=== PATIENT | female | born 1955 | race Caucasian/White ===

== ENCOUNTER 2018-03-06 08:59 | Observation (INO) | payer SELFPAY ==
[2018-03-06 09:49] LABS: BASO % 0.6 % (0.0-2.0); EOS # 0.1 K/uL (0.0-0.7); EOS % 2.7 % (0.0-4.0); HEMOGLOBIN 10.7 g/dL (11.0-16.0); LYMPH # 1.6 K/uL (1.0-4.3); LYMPH % 52.7 % (20.0-40.0); MEAN CELL VOLUME 61.3 fL (81.0-99.0); MEAN CORPUSCULAR HEMOGLOBIN 19.5 pg (27.0-31.0); MEAN CORPUSCULAR HGB CONC 31.9 g/dL (33.0-37.0); MEAN PLATELET VOLUME 8.7 fL (7.2-11.7); MONO # 0.3 K/uL (0.0-0.8); MONO % 8.5 % (0.0-10.0); NEUT # 1.1 K/uL (1.8-7.0); NEUT % 35.5 % (50.0-75.0); NRBC % 0.1 % (0.0-2.0); RBC 5.49 Mil/uL (3.80-5.20); RED CELL DISTRIBUTION WIDTH 15.8 % (11.5-14.5); WHITE BLOOD COUNT 3.1 K/uL (4.8-10.8)
--- NOTE | 2018-03-06 09:51 | C.PDOC ---
History Of Present Illness Patient presents to ED c/o intermittent left sided squeezing chest pain since this morning, worse with exertion/going up stairs. Patient has PMHx of HTN, MVP , CAD. She denies cough, fever, palpitations. She does admit to occasional SOB with exertion. Patient visiting from [place], has been here 5 months, no PMD here. Time Seen by Provider: 03/06/18 09:02 Chief Complaint (Nursing): Chest Pain History Per: Patient History/Exam Limitations: no limitations Current Symptoms Are (Timing): Still Present Severity: Moderate Quality: "Pain" Exacerbating Factors: Exertion Past Medical History Reviewed: Historical Data, Nursing Documentation, Vital Signs Vital Signs: Last Vital Signs Temp 97.9 F 03/07/18 15:00 Pulse 61 03/07/18 15:00 Resp 18 03/07/18 15:00 BP 113/76 03/07/18 15:00 Pulse Ox 98 03/07/18 15:54 - Medical History PMH: CAD, HTN, Mitral Valve Prolapse Surgical History: Appendectomy Other Surgeries: tubal ligation Family History: States: No Known Family Hx - Social History Hx Alcohol Use: No Hx Substance Use: No Review Of Systems Cardiovascular: Positive for: Chest Pain. Negative for: Palpitations Respiratory: Positive for: Shortness of Breath, SOB with Excertion. Negative for: Cough Gastrointestinal: Negative for: Nausea, Vomiting, Abdominal Pain, Diarrhea Physical Exam - Physical Exam Appears: Well, Non-toxic, No Acute Distress, Other (speaking in full sentences) Oral Mucosa: Moist Cardiovascular: Rhythm Regular, No Murmur Respiratory: Normal Breath Sounds, No Rales, No Rhonchi, No Wheezing Gastrointestinal/Abdominal: Normal Exam, Bowel Sounds, Soft, No Tenderness Extremity: Normal ROM, No Pedal Edema, No Calf Tenderness Pulses: Left Dorsalis Pedis: Normal, Right Dorsalis Pedis: Normal Neurological/Psych: Oriented x3 ED Course And Treatment - Laboratory Results Result Diagrams: 03/07/18 07:00 03/06/18 09:42 ECG: Interpreted By Me, Viewed By Me (NSR 66bpm, normal axis, ST depressions II , III, aVF, V4-V6) ECG Interpretation: Abnormal O2 Sat by Pulse Oximetry: 98 (RA) Pulse Ox Interpretation: Normal - Other Rad CXR X-Ray: Viewed By Me, Read By Radiologist Interpretation: Clear. PLEURA: No pneumothorax or pleural fluid seen. CARDIOVASCULAR: Cardiomediastinal silhouette deforms normal in size. OSSEOUS STRUCTURES: Degenerative changes. VISUALIZED UPPER ABDOMEN: Normal. OTHER FINDINGS: None. IMPRESSION: No active disease. Progress Note: Blood work, CXR, EKG ordered and reviewed. Reevaluation Time: 11:00 Reassessment Condition: Improved (Patient resting comfortably, chest pain has improved but she is c/o headache. PO tylenol ordered.) - Physician Consult Information Physician Contacted: Patsy Olson Outcome Of Conversation: Discussed patient with hospitalist, agrees with admission for chest pain, abnornal EKG, r/o ACS. Disposition - Disposition Disposition: HOSPITALIZED Disposition Time: 11:02 Condition: STABLE - Clinical Impression Clinical Impression: Abnormal EKG, Chest pain Decision To Admit - Pt Status Changed To: Hospital Disposition Of: Observation - . Bed Request Type: Telemetry Admitting Physician: Patsy Olson Patient Diagnosis: Chest pain, Abnormal EKG
[2018-03-06 09:59] LABS: ALB/GLOB RATIO 1.4 (1.0-2.1); ALBUMIN 4.2 g/dL (3.5-5.0); ALT/SGPT 31 U/L (9-52); AST/SGOT 25 U/L (14-36); BLOOD UREA NITROGEN 11 mg/dL (7-17); CALCIUM 9.2 mg/dl (8.6-10.4); GFR AFRICAN-AMERICAN > 60; GFR NON-AFRICAN AMERICAN > 60
[2018-03-06 10:01] LABS: INR 1.1; PROTHROMBIN TIME 11.5 SECONDS (9.7-12.2)
[2018-03-06 10:12] LABS: B-TYPE NATRIURETIC PEPTIDE 147 pg/mL (0-900)
--- NOTE | 2018-03-06 10:18 | RAD ---
PROCEDURE: CHEST RADIOGRAPH, 1 VIEW HISTORY: cp COMPARISON: None available. FINDINGS: LUNGS: Clear. PLEURA: No pneumothorax or pleural fluid seen. CARDIOVASCULAR: Cardiomediastinal silhouette deforms normal in size. OSSEOUS STRUCTURES: Degenerative changes. VISUALIZED UPPER ABDOMEN: Normal. OTHER FINDINGS: None. IMPRESSION: No active disease.
[2018-03-06 10:22] LABS: CK-MB < 0.22 ng/mL (0.0-3.38)
--- NOTE | 2018-03-06 12:32 | CP.PCM.HP ---
History of Present Illness - History of Present Illness History of Present Illness: Ms. Tate is a 62yo female with a PMH CAD, angina, HTN, HLD, MVP, anemia presenting with sudden chest pain that awoke her from sleep at 3AM. She is visiting from [place] for the last 5 months and had planned on returning back at the end of the 6th month here in the [place]. The CP comes and goes and lasts for about 3 min at a time with palpitations, numbness and tingling down both arms, more pronounced on the left, dizziness, and shortness of breath. It originates midsternum and radiates to her back, worse when she leans forward. She also complains of swelling in her legs that has been going on for the last year. Denies fever, chills, night sweats, changes in weight or appetite. Denies sore throat, recent travel, nausea, vomiting, constipation, diarrhea. Present on Admission - Present on Admission Any Indicators Present on Admission: No Review of Systems - Constitutional Constitutional: absent: Fever, Headache, Night Sweats, Weight Gain, Weight Loss , Weakness - EENT Eyes: absent: Change in Vision Ears: Tinnitus Nose/Mouth/Throat: absent: Dry Mouth, Dysphagia, Sore Throat - Cardiovascular Cardiovascular: Chest Pain, Chest Pain at Rest, Dyspnea, Leg Edema, Lightheadedness, Palpitations, Radiating Pain. absent: Diaphoresis, Dyspnea on Exertion, Leg Ulcers, Syncope - Respiratory Respiratory: Dyspnea. absent: Cough, Wheezing, Pain on Inspiration, Chest Congestion - Gastrointestinal Gastrointestinal: absent: Abdominal Pain, Change in Bowel Habits, Constipation, Diarrhea, Hematemesis, Hematochezia - Genitourinary Genitourinary: absent: Change in Urinary Stream, Difficulty Urinating, Urinary Incontinence, Urinary Urgency, Bladder Distension - Reproductive: Female Reproductive:Female: Post Menopausal - Menstruation Menstruation: Post Menopausal - Musculoskeletal Musculoskeletal: Numbness. absent: Muscle Weakness Additional comments: numbess radiating down arm most pronounced at fingertips of both hands - Integumentary Integumentary: Dry Skin. absent: Erythema, Rash Additional comments: warm, dry, intact - Neurological Neurological: Dizziness, Numbness, Tingling. absent: Abnormal Gait, Focal Weakness, Frequent Falls, Headaches, Loss of Vision, Memory Loss, Paresthesias, Radicular Pain, Syncope, Tremor - Psychiatric Psychiatric: absent: Behavioral Changes, Confusion, Depression - Endocrine Endocrine: absent: Cold Intolorance, Flushing, Heat Intolorance - Hematologic/Lymphatic Additional comments: non pitting edema in bilateral ankles. 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[place]) Hx Angina: Yes Hx Atrial Fibrillation: No Hx Congestive Heart Failure: No Hx Heart Attack: No Hx Hypercholesterolemia: Yes Hx Hypertension: Yes Hx Mitral Valve Prolapse: Yes - PSYCHIATRIC Hx Substance Use: No - SURGICAL HISTORY Hx Appendectomy: Yes Meds Allergies/Adverse Reactions: Allergies Allergy/AdvReac Type Severity Reaction Status Date / Time No Known Allergies Allergy Verified 03/06/18 09:28 Physical Exam - Constitutional Appears: Non-toxic, No Acute Distress - Head Exam Head Exam: ATRAUMATIC, NORMOCEPHALIC - Eye Exam Eye Exam: EOMI, Normal appearance, PERRL - ENT Exam ENT Exam: Mucous Membranes Moist, Normal Exam - Neck Exam Neck exam: Positive for: Normal Inspection. Negative for: Lymphadenopathy, Tenderness Additional comments: no JVD - Respiratory Exam Respiratory Exam: Clear to Auscultation Bilateral, NORMAL BREATHING PATTERN. absent: Rales, Rhonchi, Wheezes - Cardiovascular Exam Cardiovascular Exam: REGULAR RHYTHM, RRR, +S1, +S2. absent: Clicks Additional comments: MVP click not appreciated - GI/Abdominal Exam GI & Abdominal Exam: Normal Bowel Sounds, Soft. absent: Distended, Rebound, Tenderness - Extremities Exam Extremities exam: Positive for: full ROM, pedal edema, pedal pulses present Additional comments: producible numbness and tingling in bilateral hands. bilateral ankle edema, non pitting - Back Exam Back exam: NORMAL INSPECTION. absent: rash noted - Neurological Exam Neurological exam: Alert, CN II-XII Intact, Normal Gait, Oriented x3, Reflexes Normal Additional comments: distal tingling of fingertips reproducible motor function 5+ in all 4 extremities in all movements - Psychiatric Exam Psychiatric exam: Normal Affect, Normal Mood - Skin Skin Exam: Dry, Intact, Normal Color, Warm Results - Vital Signs Recent Vital Signs: Last Vital Signs Temp 98.3 F 03/06/18 09:25 Pulse 57 L 03/06/18 10:34 Resp 16 03/06/18 10:34 BP 147/80 03/06/18 10:34 Pulse Ox 98 03/06/18 11:05 - Labs Result Diagrams: 03/06/18 09:42 03/06/18 09:42 Labs: Laboratory Results - last 24 hr 03/06/18 03/06/18 03/06/18 09:42 09:42 09:42 WBC 3.1 L RBC 5.49 H Hgb 10.7 L Hct 33.7 L MCV 61.3 L MCH 19.5 L MCHC 31.9 L RDW 15.8 H Plt Count 184 MPV 8.7 Neut % (Auto) 35.5 L Lymph % (Auto) 52.7 H [place] % (Auto) 8.5 Eos % (Auto) 2.7 Baso % (Auto) 0.6 Neut # (Auto) 1.1 L Lymph # (Auto) 1.6 [place] # (Auto) 0.3 Eos # (Auto) 0.1 Baso # (Auto) 0.0 Differential Comment PT 11.5 INR 1.1 APTT 32 Sodium 145 Potassium 4.1 Chloride 107 Carbon Dioxide 29 Anion Gap 14 BUN 11 Creatinine 0.7 Est GFR ( Amer) > 60 Est GFR (Non-Af Amer) > 60 POC Glucose (mg/dL) Random Glucose 93 Calcium 9.2 Total Bilirubin 0.6 AST 25 ALT 31 Alkaline Phosphatase 47 Total Creatine Kinase 57 CK-MB (Mass) < 0.22 Troponin I < 0.0120 NT-Pro-B Natriuret Pep 147 Total Protein 7.3 Albumin 4.2 Globulin 3.1 Albumin/Globulin Ratio 1.4 03/06/18 09:42 WBC RBC Hgb Hct MCV MCH MCHC RDW Plt Count MPV Neut % (Auto) Lymph % (Auto) [place] % (Auto) Eos % (Auto) Baso % (Auto) Neut # (Auto) Lymph # (Auto) [place] # (Auto) Eos # (Auto) Baso # (Auto) Differential Comment PT INR APTT Sodium Potassium Chloride Carbon Dioxide Anion Gap BUN Creatinine Est GFR ( Amer) Est GFR (Non-Af Amer) POC Glucose (mg/dL) 83 Random Glucose Calcium Total Bilirubin AST ALT Alkaline Phosphatase Total Creatine Kinase CK-MB (Mass) Troponin I NT-Pro-B Natriuret Pep Total Protein Albumin Globulin Albumin/Globulin Ratio Assessment & Plan - Assessment and Plan (Free Text) Plan: 1) Chest Pain -r/o ACS, aneurysm -Hx CAD with angina, HLD. Reports palpitations, abnormal EKGs. -f/u ROMIs and EKGs x3. * <0.0120, <0.0120. trend the third at 1900. * ST depressions in contiguous anterior leads: V4 V5 -ProBNP on admission: 147 -f/u lipid panel, Hgb A1c, TSH, Free T4 in AM -CXR negative: No active disease -Chest CT angiography negative: Unremarkable CT pulmonary angiogram. No pulmonary embolus. No thoracic aortic aneurysm. -Cardio consulted: Dr. Eng - help appreciated -monitor on telemetry ASA 81mg po daily Atorvastatin 10mg po HS -> switch to Crestor 5mg po HS Lopressor 25mg po bid with holding parameters NTG 2.5mg po bid -> switch to NTG 0.4mg sublingual q5m prn ALDO score: 4 -> 20% risk HEART score: 7 -> 55-60% risk 2) Hx of Hypertension -Heart healthy diet -> vegan diet due to patient request -Monitor BP Lopressor 25mg po bid with holding parameters 3) Hx of Lipid disorder -f/u lipid panel in AM Atorvastatin 10mg po HS -> switch to Crestor 5mg po HS 4) Hx of CAD with angina -per patient Atorvastatin 10mg po HS -> switch to Crestor 5mg po HS 5) Leg edema, bilateral -f/u venous Dopplers r/o DVT 6) Hx anemia -f/u retic count, VitB12, folate, haptoglobin, hemoglobinopathy studies -f/u TIBC, ferritin, Fe -f/u occult blood * MCV: 61.3 on admission. -In combination with Syrian heritage, thalassemia more likely than acute bleeding cause. MVI 7) Prophylaxis measures -Lovenox 40mg sc daily -Pepcid 20mg po bid -PT and OT eval prior to discharge Carie Cordova PGY-1. Case discussed with Dr. Olson. - Date & Time Date: 03/06/18 Time: 12:12
[2018-03-06 14:17] LABS: CK-MB < 0.22 ng/mL (0.0-3.38)
[2018-03-06] MEDS ORDERED: Iodixanol 320 MG/ML 100 ML BOTTLE IV ONE (17:03)
--- NOTE | 2018-03-06 17:39 | CT ---
PROCEDURE: CT Chest with contrast (Pulmonary Angiogram) HISTORY: chest pain radiating to back COMPARISON: None available. TECHNIQUE: Axial computed tomography images were obtained of the chest in the pulmonary arterial phase of enhancement. Coronal and sagittal reformatted images were created and reviewed. Intravenous contrast dose: 100 mL Visipaque 320 Radiation dose: Total exam DLP = 179.4 mGy-cm. This CT exam was performed using one or more of the following dose reduction techniques: Automated exposure control, adjustment of the mA and/or kV according to patient size, and/or use of iterative reconstruction technique. FINDINGS: PULMONARY ARTERIES: Unremarkable. No pulmonary embolism. AORTA: No acute findings. No thoracic aortic aneurysm. LUNGS: Unremarkable. No nodule, mass or pulmonary consolidation. PLEURAL SPACES: Unremarkable. No effusion or pneumothorax. HEART: Unremarkable. No cardiomegaly. No significant pericardial effusion. LYMPH NODES: No lymphadenopathy. BONES, CHEST WALL: Unremarkable. No fracture or destructive lesion OTHER FINDINGS: Unremarkable. IMPRESSION: Unremarkable CT pulmonary angiogram. No pulmonary embolus.
[2018-03-06] MEDS: Enoxaparin 40 mg Syringe SC SCH (17:44)
[2018-03-06 20:09] LABS: CK-MB < 0.22 ng/mL (0.0-3.38)
[2018-03-07 07:24] VITALS: O2SAT 98
[2018-03-07 07:42] LABS: HDL CHOLESTEROL 53 mg/dL (30-70); IRON 66 ug/dL (37-170)
[2018-03-07 07:48] LABS: BASO % 0.7 % (0.0-2.0); EOS # 0.1 K/uL (0.0-0.7); EOS % 2.8 % (0.0-4.0); HEMOGLOBIN 11.7 g/dL (11.0-16.0); LYMPH # 2.2 K/uL (1.0-4.3); LYMPH % 50.9 % (20.0-40.0); MEAN CELL VOLUME 61.8 fL (81.0-99.0); MEAN CORPUSCULAR HEMOGLOBIN 19.9 pg (27.0-31.0); MEAN CORPUSCULAR HGB CONC 32.1 g/dL (33.0-37.0); MEAN PLATELET VOLUME 9.1 fL (7.2-11.7); MONO # 0.4 K/uL (0.0-0.8); MONO % 8.7 % (0.0-10.0); NEUT # 1.6 K/uL (1.8-7.0); NEUT % 36.9 % (50.0-75.0); NRBC % 0.1 % (0.0-2.0); RBC 5.91 Mil/uL (3.80-5.20); RED CELL DISTRIBUTION WIDTH 15.8 % (11.5-14.5); WHITE BLOOD COUNT 4.3 K/uL (4.8-10.8)
[2018-03-07 07:53] LABS: LDL CHOLESTEROL 109 mg/dL (0-129); TOTAL IRON BINDING CAPACITY 310 ug/dL (250-450)
[2018-03-07 08:23] LABS: FERRITIN 32.8 ng/mL
[2018-03-07 08:54] LABS: FOLATE > 20.0 ng/mL
[2018-03-07] MEDS ORDERED: Multivitamin With Minerals Tab PO SCH (10:00)
[2018-03-07] MEDS: Enoxaparin 40 mg Syringe SC SCH (10:01)
--- NOTE | 2018-03-07 10:28 | CP.PCM.PN ---
Subjective - Date & Time of Evaluation Date of Evaluation: 03/07/18 Time of Evaluation: 10:25 - Subjective Subjective: PGY-[address] Olson. Patient was seen and examined today at bedside. Objective - Vital Signs/Intake and Output Vital Signs (last 24 hours): Temp Pulse Resp BP Pulse Ox 97.3 F L 63 20 155/88 H 98 03/07/18 07:24 03/07/18 07:24 03/07/18 07:24 03/07/18 10:01 03/07/18 07:24 - Medications Medications: Current Medications Aspirin (Aspirin Chewable) 81 mg PO DAILY [facility] Last Admin: 03/07/18 10:00 Dose: 81 mg Enoxaparin Sodium (Lovenox) 40 mg SC DAILY [facility] Last Admin: 03/07/18 10:01 Dose: 40 mg Famotidine (Pepcid) 20 mg PO BID [facility] Last Admin: 03/07/18 10:01 Dose: 20 mg Lisinopril (Zestril) 5 mg PO DAILY [facility] Last Admin: 03/07/18 10:00 Dose: 5 mg Metoprolol Tartrate (Lopressor) 25 mg PO BID [facility] Last Admin: 03/07/18 10:01 Dose: 25 mg Multivitamins/Minerals (Therapeutic-M Tab) 1 tab PO DAILY [facility] Last Admin: 03/07/18 10:00 Dose: 1 tab Nitroglycerin (Nitrostat Sl Tab) 0.4 mg SL Q5M PRN PRN Reason: Pain, severe (8-10) Rosuvastatin Calcium (Crestor) 5 mg PO HS [facility] Last Admin: 03/06/18 21:30 Dose: 5 mg - Labs Labs: 03/07/18 07:00 03/06/18 09:42 PT 11.5 SECONDS (9.7-12.2) 03/06/18 09:42 INR 1.1 03/06/18 09:42 APTT 32 SECONDS (21-34) 03/06/18 09:42
--- NOTE | 2018-03-07 13:57 | VASCLAB ---
PROCEDURE: Lower Extremity Venous Duplex Exam. HISTORY: Leg edema PRIORS: None. TECHNIQUE: Bilateral common femoral, femoral, popliteal and posterior tibial, peroneal and great saphenous veins were evaluated. Flow was assessed with color Doppler, compressibility, assessment of phasic flow and augmentation response. Report prepared by HAILEE Her, RVT FINDINGS: RIGHT: 1. Common Femoral Vein: 1.1. Compressibility - Fully compressible: Thrombus - None : Flow - Phasic: Augmentation -Normal: Reflux - None. 2. Femoral Vein: 2.1. Compressibility - Fully compressible: Thrombus - None : Flow - Phasic: Augmentation -Normal: Reflux - None. 3. Popliteal Vein: 3.1. Compressibility - Fully compressible: Thrombus - None : Flow - Phasic: Augmentation -Normal: Reflux - Severe >4.98s 4. Posterior Tibial Vein: 4.1. Compressibility - Fully compressible: Thrombus - None: Flow - Phasic: Augmentation -Normal: Reflux - None. 5. Peroneal Vein: 5.1. Compressibility - Fully compressible: Thrombus - None: Flow - Phasic: Augmentation -Normal: Reflux - None. 6. Great Saphenous Vein: 6.1. Compressibility - Fully compressible: Thrombus - None: Flow - Phasic: Augmentation - Normal: Reflux - Moderate 2.56s LEFT: 1. Common Femoral Vein: 1.1. Compressibility - Fully compressible: Thrombus - None: Flow - Phasic: Augmentation -Normal: Reflux - None. 2. Femoral Vein: 2.1. Compressibility - Fully compressible: Thrombus - None: Flow - Phasic: Augmentation -Normal: Reflux - Moderate 2.75s 3. Popliteal Vein: 3.1. Compressibility - Fully compressible: Thrombus - None : Flow - Phasic: Augmentation -Normal: Reflux - None. 4. Posterior Tibial Vein: 4.1. Compressibility - Fully compressible: Thrombus - None: Flow - Phasic: Augmentation -Normal: Reflux - None. 5. Peroneal Vein: 5.1. Compressibility - Fully compressible: Thrombus - None: Flow - Phasic: Augmentation -Normal: Reflux - None. 6. Great Saphenous Vein: 6.1. Compressibility - Fully compressible: Thrombus - None: Flow - Phasic: Augmentation - Normal: Reflux - None. OTHER FINDINGS: Right: None significant. Left: None significant. IMPRESSION: Right: No evidence of deep or superficial vein thrombosis of the right lower extremity. Valvular incompetence noted of the popliteal and great saphenous veins. Left: No evidence of deep or superficial vein thrombosis of the left lower extremity. Valvular incompetence noted of the femoral vein.
[2018-03-07 15:25] VITALS: BP 113/76; RESP 18; TEMP 97.9
[2018-03-07 17:02] VITALS: PULSE 62
--- NOTE | 2018-03-07 18:09 | CARD ---
APPROVED REPORT EKG Measurement Heart [id number] <Conclusion> Sinus bradycardia Nonspecific ST abnormality Abnormal ECG
--- NOTE | 2018-03-07 18:29 | CP.PCM.DIS ---
Provider - Provider Date of Admission: 03/06/18 11:02 Attending physician: Patsy Olson DO Time Spent in preparation of Discharge (in minutes): 60 Diagnosis - Discharge Diagnosis (1) Left against medical advice Status: Acute (2) Abnormal EKG Status: Acute Comment: please refer to discharge summary (3) Chest pain Status: Acute Comment: please refer to discharge summary Hospital Course - Lab Results Lab Results: Most Recent Lab Values WBC 4.3 K/uL (4.8-10.8) L 03/07/18 07:00 RBC 5.91 Mil/uL (3.80-5.20) H 03/07/18 07:00 Hgb 11.7 g/dL (11.0-16.0) 03/07/18 07:00 Hct 36.5 % (34.0-47.0) 03/07/18 07:00 MCV 61.8 fL (81.0-99.0) L 03/07/18 07:00 MCH 19.9 pg (27.0-31.0) L 03/07/18 07:00 MCHC 32.1 g/dL (33.0-37.0) L 03/07/18 07:00 RDW 15.8 % (11.5-14.5) H 03/07/18 07:00 Plt Count 227 K/uL (130-400) 03/07/18 07:00 MPV 9.1 fL (7.2-11.7) 03/07/18 07:00 Neut % (Auto) 36.9 % (50.0-75.0) L 03/07/18 07:00 Lymph % (Auto) 50.9 % (20.0-40.0) H 03/07/18 07:00 Drew % (Auto) 8.7 % (0.0-10.0) 03/07/18 07:00 Eos % (Auto) 2.8 % (0.0-4.0) 03/07/18 07:00 Baso % (Auto) 0.7 % (0.0-2.0) 03/07/18 07:00 Neut # (Auto) 1.6 K/uL (1.8-7.0) L 03/07/18 07:00 Lymph # (Auto) 2.2 K/uL (1.0-4.3) 03/07/18 07:00 Drew # (Auto) 0.4 K/uL (0.0-0.8) 03/07/18 07:00 Eos # (Auto) 0.1 K/uL (0.0-0.7) 03/07/18 07:00 Baso # (Auto) 0.0 K/uL (0.0-0.2) 03/07/18 07:00 Differential Comment 03/06/18 09:42 Retic Count 1.1 % (0.5-1.5) 03/07/18 07:00 Haptoglobin 591.3 mg/dL (30.0-200.0) H 03/07/18 07:00 PT 11.5 SECONDS (9.7-12.2) 03/06/18 09:42 INR 1.1 03/06/18 09:42 APTT 32 SECONDS (21-34) 03/06/18 09:42 Sodium 145 mmol/L (132-148) 03/06/18 09:42 Potassium 4.1 mmol/L (3.6-5.2) 03/06/18 09:42 Chloride 107 mmol/L (98-107) 03/06/18 09:42 Carbon Dioxide 29 mmol/L (22-30) 03/06/18 09:42 Anion Gap 14 (10-20) 03/06/18 09:42 BUN 11 mg/dL (7-17) 03/06/18 09:42 Creatinine 0.7 mg/dL (0.7-1.2) 03/06/18 09:42 Est GFR ( Amer) > 60 03/06/18 09:42 Est GFR (Non-Af Amer) > 60 03/06/18 09:42 POC Glucose (mg/dL) 83 mg/dL (65-110) 03/06/18 09:42 Random Glucose 93 mg/dL (65-105) 03/06/18 09:42 Hemoglobin A1c 5.7 % (4.2-6.5) 03/07/18 07:00 Calcium 9.2 mg/dl (8.6-10.4) 03/06/18 09:42 Iron 66 ug/dL (37-170) 03/07/18 07:00 TIBC 310 ug/dL (250-450) 03/07/18 07:00 Ferritin 32.8 ng/mL 03/07/18 07:00 Total Bilirubin 0.6 mg/dL (0.2-1.3) 03/06/18 09:42 AST 25 U/L (14-36) 03/06/18 09:42 ALT 31 U/L (9-52) 03/06/18 09:42 Alkaline Phosphatase 47 U/L (38-126) 03/06/18 09:42 Total Creatine Kinase 72 U/L (30-135) 03/06/18 19:35 CK-MB (Mass) < 0.22 ng/mL (0.0-3.38) 03/06/18 19:35 Troponin I < 0.0120 ng/mL (0.00-0.120) 03/06/18 19:35 NT-Pro-B Natriuret Pep 147 pg/mL (0-900) 03/06/18 09:42 Total Protein 7.3 g/dL (6.3-8.3) 03/06/18 09:42 Albumin 4.2 g/dL (3.5-5.0) 03/06/18 09:42 Globulin 3.1 gm/dL (2.2-3.9) 03/06/18 09:42 Albumin/Globulin Ratio 1.4 (1.0-2.1) 03/06/18 09:42 Triglycerides 64 mg/dL (0-149) 03/07/18 07:00 Cholesterol 194 mg/dL (0-199) 03/07/18 07:00 LDL Cholesterol Direct 109 mg/dL (0-129) 03/07/18 07:00 HDL Cholesterol 53 mg/dL (30-70) 03/07/18 07:00 Vitamin B12 681 pg/mL (239-931) 03/07/18 07:00 Folate > 20.0 ng/mL 03/07/18 07:00 TSH 3rd Generation 4.94 mIU/L (0.46-4.68) H 03/07/18 07:00 - Hospital Course Hospital Course: Ms. Tate is a 62yo female with a PMH CAD, angina, HTN, HLD, MVP, anemia presenting with sudden chest pain that awoke her from sleep at 3AM. She is visiting from [place] for the last 5 months and had planned on returning back at the end of the 6th month here [place] the [place]. The CP comes and goes and lasts for about 3 min at a time with palpitations, numbness and tingling down both arms, more pronounced on the left, dizziness, and shortness of breath. It originates midsternum and radiates to her back, worse when she leans forward. She also complains of swelling in her legs that has been going on for the last year. Denies fever, chills, night sweats, changes in weight or appetite. Denies sore throat, recent travel, nausea, vomiting, constipation, diarrhea. Patient is an Malay speaking only 62 year old female visiting from [place] who came to the hospital after experiencing chest pain. CXR and Chest CT angio were negative for ACS and acute vascular event, including current STEMI and dissecting aorta. Serial ROMIs and EKGs were negative for ACS, although there were notable ST depressions in contiguous leads on her at-admission EKG. Dopplers of her lower extremities were negative for deep or superficial vein thrombosis of either lower extremity, although valvular incompetence was noted of the right popliteal, right great saphenous, and left femoral veins. An Echo was done however was not interpreted before the patient decided to sign out against medical advice. Patient decided to leave the hospital against medical advice while alert and oriented x3. [place] speaking raisin separator operator medical student Gordy Blank who assisted in interpretation. The ramifications were thoroughly discussed with her and family who understood complications could include heart attack, stroke, or other life threatening issues leading up to . She stated she would obtain medical records and followup with an outpatient pre sales technical consultant of her own choosing, understanding she was leaving before the pre sales technical consultant at the hospital could evaluate and treat her. Patient was recommended to return to the ED immediately if symptoms returned or worsened. Discharge Exam - Head Exam Head Exam: ATRAUMATIC, NORMOCEPHALIC - Eye Exam Eye Exam: EOMI, Normal appearance, PERRL - ENT Exam ENT Exam: Mucous Membranes Moist, Normal Exam - Respiratory Exam Respiratory Exam: Clear to PA & Lateral, NORMAL BREATHING PATTERN, UNREMARKABLE. absent: Rales, Rhonchi, Wheezes - Cardiovascular Exam Cardiovascular Exam: REGULAR RHYTHM, RRR, +S1, +S2. absent: Gallop, Systolic Murmur - GI/Abdominal Exam GI & Abdominal Exam: Normal Bowel Sounds, Soft. absent: Distended, Rebound, Tenderness - Extremities Exam Extremities exam: normal capillary refill, pedal pulses present - Neurological Exam Neurological exam: Alert, CN II-XII Intact, Normal Gait, Oriented x3, Reflexes Normal - Psychiatric Exam Psychiatric exam: Normal Affect, Normal Mood - Skin Skin Exam: Dry, Intact, Normal Color, Warm Discharge Plan - Follow Up Plan Condition: GUARDED Disposition: AGAINST MEDICAL ADVICE
[2018-03-08 05:11] LABS: MCH 19.2 pg (27.0-33.0); MCV 63.3 fL (80.0-100.0)
== END 2018-03-07 18:14 | disposition left against medical advice (07) ==
LOC: C.ER 08:59 → C.9E 11:02 → C.5S 12:49
PROVIDERS: ADMIT Hospitalist; ATTEND Hospitalist
DX: R07.9 Chest pain, unspecified (principal); R94.31 Abnormal electrocardiogram [ECG] [EKG]; I25.10 Atherosclerotic heart disease of native coronary artery without angina pectoris; I10 Essential (primary) hypertension; E78.5 Hyperlipidemia, unspecified; I34.1 Nonrheumatic mitral (valve) prolapse; D64.9 Anemia, unspecified; R06.02 Shortness of breath
CPT/HCPCS: 36415; 71045; 71275; 80053; 80061; 82550; 82553; 82607; 82728; 82746; 82948; 83010; 83021; 83036; 83540; 83550; 83880; 84443; 84484; 85014; 85018; 85025; 85041; 85044; 85610; 85730; 93005; 93306; 93970; 97116; 97161; 97165; 97535; 99285; G0328; G0378; G8978; G8979; G8980; G8987; G8988; G8989; J1650; Q9967